=== PATIENT | male | born 1950 | race Caucasian/White ===

== ENCOUNTER → 2017-06-18 | Outpatient (CLI) | payer OTHER ==
[~2017-06-18] MED LIST: INDERAL LA80 MG PO; PROTONIX20 MG PO
== END | disposition home or self-care (01) ==
LOC: LAB 08:12
DX: K74.69 Other cirrhosis of liver (principal)

== ENCOUNTER 2018-01-13 08:11 | Outpatient (CLI) | payer OTHER | END 2018-01-13 08:19 | disposition home or self-care (01) | LOC: LAB 08:11 | DX: Z12.11 Encounter for screening for malignant neoplasm of colon (principal); K57.30 Diverticulosis of large intestine without perforation or abscess without bleeding; K74.69 Other cirrhosis of liver ==

== ENCOUNTER 2018-03-02 07:38 | Outpatient (CLI) | payer OTHER | END 2018-03-02 07:47 | disposition home or self-care (01) | LOC: LAB 07:38 | DX: I85.01 Esophageal varices with bleeding (principal); K74.69 Other cirrhosis of liver ==

== ENCOUNTER 2018-04-16 07:18 | Outpatient (CLI) | payer OTHER | END 2018-04-16 13:28 | disposition home or self-care (01) | LOC: LAB 07:18 | DX: K26.3 Acute duodenal ulcer without hemorrhage or perforation (principal); K74.60 Unspecified cirrhosis of liver ==

== ENCOUNTER 2018-04-21 08:06 | Outpatient (CLI) | payer OTHER | END 2018-04-21 08:12 | disposition home or self-care (01) | LOC: LAB 08:06 | DX: K71.7 Toxic liver disease with fibrosis and cirrhosis of liver (principal); D64.89 Other specified anemias; S86.111A Strain of other muscle(s) and tendon(s) of posterior muscle group at lower leg level, right leg, initial encounter ==

== ENCOUNTER 2018-06-03 08:25 | Outpatient (CLI) | payer OTHER | END 2018-06-03 09:20 | disposition home or self-care (01) | LOC: LAB 08:25 | DX: E78.00 Pure hypercholesterolemia, unspecified (principal); K74.60 Unspecified cirrhosis of liver ==

== ENCOUNTER 2018-09-23 07:31 | Outpatient (CLI) | payer OTHER | END 2018-09-23 07:37 | disposition home or self-care (01) | LOC: LAB 07:31 | DX: K74.60 Unspecified cirrhosis of liver (principal) ==

== ENCOUNTER 2018-10-29 08:39 | Outpatient (CLI) | payer OTHER | END 2018-10-29 08:51 | disposition home or self-care (01) | LOC: LAB 08:39 | DX: E03.8 Other specified hypothyroidism (principal); E11.9 Type 2 diabetes mellitus without complications; E78.00 Pure hypercholesterolemia, unspecified; I10 Essential (primary) hypertension ==

== ENCOUNTER 2019-01-15 08:04 | Outpatient (CLI) | payer OTHER | END 2019-01-15 08:14 | disposition home or self-care (01) | LOC: LAB 08:04 | DX: K74.60 Unspecified cirrhosis of liver (principal); E78.2 Mixed hyperlipidemia; Z87.11 Personal history of peptic ulcer disease ==

== ENCOUNTER → 2019-07-15 07:44 | Outpatient (CLI) | payer OTHER ==
[~2019-07-15 07:44] MED LIST changes: +CARAFATE1 GM PO; +LEVO-T50 MCG PO; +PROTONIX40 MG PO; +SYNTHROID88 MCG; +ZETIA10 MG PO
== END | disposition home or self-care (01) ==
LOC: LAB 07:44
PROVIDERS: ATTEND Internal Medicine Gastroenterology
DX: K74.69 Other cirrhosis of liver (principal)

== ENCOUNTER 2019-08-12 07:29 | Emergency (ER) | payer OTHER ==
[~2019-08-12] VITALS: Ht 177.8 cm; Wt 97.5 kg
[~2019-08-12 07:29] MED LIST changes: -CARAFATE1 GM PO; -LEVO-T50 MCG PO; -PROTONIX40 MG PO; -SYNTHROID88 MCG; -ZETIA10 MG PO
[2019-08-12] MEDS ORDERED: SYNTHROID88 MCG (08:31)
[2019-08-12] MEDS ORDERED: PROTONIX40 MG PO (12:14)
[2019-08-12] MEDS ORDERED: CARAFATE1 GM PO (12:14)
== END 2019-08-12 12:37 | disposition home or self-care (01) ==
LOC: ER 07:29
DX: R19.5 Other fecal abnormalities (principal); K92.2 Gastrointestinal hemorrhage, unspecified

== ENCOUNTER → 2019-08-13 08:20 | Outpatient (CLI) | payer OTHER ==
[~2019-08-13 08:20] MED LIST changes: +CARAFATE1 GM PO; +LEVO-T50 MCG PO; +PROTONIX40 MG PO; +SYNTHROID88 MCG; +ZETIA10 MG PO
== END | disposition home or self-care (01) ==
LOC: LAB 08:20
PROVIDERS: ATTEND General Practice
DX: D64.89 Other specified anemias (principal); R58 Hemorrhage, not elsewhere classified; D69.49 Other primary thrombocytopenia

== ENCOUNTER 2019-08-13 08:57 | Inpatient (IN) | payer OTHER ==
[~2019-08-13] VITALS: Ht 177.8 cm; Wt 97.5 kg
[~2019-08-13 08:57] MED LIST changes: -LEVO-T50 MCG PO; -ZETIA10 MG PO
--- NOTE | 2019-08-13 09:08 | NUR ---
PACIENTE ALERTA Y ORIENTADO EN [facility] [facility], EL MISMO INDICA SANGRADO RECTAL DESDE HACE DOS RG APROXIMADAMENTE. VERBALIZA SE ATENDIO EN EL [place] EN LA TOSHIA DE EMERGENCIA, SIN EMBARGO INDICA NO OLIVER TENIDO MEJORIA. SE COLOCA EN AREA DE [place] PARA EVALUACION MEDICA.
--- NOTE | 2019-08-13 10:21 | NUR ---
PTE MASCULINO ALERTA Y ORIENTADO EN [place] [facility] ES EVALUADO POR . SE ORIENTA PTE SOBRE TARTAMIENTO ORDENADO REFIERE COMPRENDER. SE PROCEDE A CANALIZAR VENA Y COLECTAR MUESTRAS DE LABORATORIO, BAJO MEDIDAS ASEPTICAS. SE COLOCAN TERAPIA DE IVFS, HEVER ORDEN MEDICA. SE ENTREGA CONTRASTE ORAL Y SE ORIENTA PTE A INGESTA DE LA MISMA, REFIERE COMPRENDER.
--- NOTE | 2019-08-13 11:20 | NUR ---
PTE PRESENTA EPISODIO DE EMESIS, SE OBSERVA SECRECIONES "COFFEE BROWN" Y SANGUINOLENTAS, CANTIDAD ABUNDANTE. SE NOTIFICA A . SE SRI ASISTENCIA A PTE Y COMODIDAD.
[2019-08-16] MEDS ORDERED: LEVO-T50 MCG PO (07:58)
[2019-08-16] MEDS ORDERED: ZETIA10 MG PO (07:59)
== END 2019-08-18 18:31 | disposition home or self-care (01) | DRG 378 ==
LOC: ER 08:57 → ICU-2 13:27 → ICU 13:27 → MEDJ 08-16 20:32
PROVIDERS: ADMIT Internal Medicine; ATTEND Internal Medicine
PROC: BW21ZZZ Computerized Tomography (CT Scan) of Abdomen and Pelvis (ICD-10-PCS; 2019-08-13)
PROC: 30233N1 Transfusion of Nonautologous Red Blood Cells into Peripheral Vein, Percutaneous Approach (ICD-10-PCS; 2019-08-15)
PROC: 0DJ08ZZ Inspection of Upper Intestinal Tract, Via Natural or Artificial Opening Endoscopic (ICD-10-PCS; principal; 2019-08-16)
DX: K92.0 Hematemesis (principal); G93.40 Encephalopathy, unspecified; D62 Acute posthemorrhagic anemia; K92.1 Melena; K74.69 Other cirrhosis of liver; I85.10 Secondary esophageal varices without bleeding; B18.2 Chronic viral hepatitis C; D69.6 Thrombocytopenia, unspecified; E86.0 Dehydration; K57.30 Diverticulosis of large intestine without perforation or abscess without bleeding; K31.89 Other diseases of stomach and duodenum; I86.8 Varicose veins of other specified sites

== ENCOUNTER 2019-08-20 17:56 | Emergency (ER) | payer OTHER ==
[~2019-08-20] VITALS: Ht 177.8 cm; Wt 97.5 kg
[~2019-08-20 17:56] MED LIST changes: +LEVO-T50 MCG PO; +ZETIA10 MG PO
== END 2019-08-20 22:45 | disposition home or self-care (01) ==
LOC: ER 17:56
DX: K29.70 Gastritis, unspecified, without bleeding (principal); R60.0 Localized edema

== ENCOUNTER → 2020-02-26 08:05 | Outpatient (CLI) | payer OTHER | END | disposition home or self-care (01) | LOC: LAB 08:05 | PROVIDERS: ATTEND Internal Medicine Gastroenterology | DX: K74.69 Other cirrhosis of liver (principal); I85.01 Esophageal varices with bleeding; I85.00 Esophageal varices without bleeding ==